=== PATIENT | female | born 2000 | race Two or more races ===

== ENCOUNTER → 2023-10-06 | Emergency (ER) | payer OTHER ==
[~2023-10-06] VITALS: Ht 152.4 cm; Wt 45.4 kg
[2023-10-06 03:25] LABS: HEMATOCRIT 37.6 % (36.0-45.00); HEMOGLOBIN 12.3 g/dL (12.0-15.00); MEAN CORPUSCULAR HEMOGLOBIN 27.3 pg (27.00-32.0); MEAN CORPUSCULAR HGB CONC 32.9 g/dl (32.0-36.0); PLATELET COUNT 306 K/uL (150-450); RED BLOOD COUNT 4.53 M/uL (4.00-6.00); RED CELL DISTRIBUTION WIDTH 14.9 % (11.5-14.5)
[2023-10-06 03:44] LABS: ALBUMIN 3.9 gm/dL (3.4-5.0); BILIRUBIN TOTAL 0.38 mg/dL (0.3-1.2); CALCIUM 8.5 mg/dL (8.5-10.1); CREATININE SERUM 0.76 mg/dL (0.55-1.02); GFR 96.07; GLOBULINA 4.3 G/DL (2.4-3.5); TOTAL PROTEIN 8.2 gm/dL (6.4-8.2)
[2023-10-06 04:01] LABS: POTASSIUM 2.82 mEq/L (3.5-5.1)
== END | disposition left against medical advice (07) ==
LOC: EDBD 03:04 → ER 03:04
PROVIDERS: General Practice
DX: F12.129 Cannabis abuse with intoxication, unspecified (principal)